=== PATIENT | female | born 1930 | race American Indian/Alaskan Native ===

== ENCOUNTER 2018-05-22 09:42 | Outpatient (CLI) | payer OTHER ==
[~2018-05-22 09:42] MED LIST: ATACAND16 MG PO; CRESTOR20 MG PO; DAFLONEX-XL TA1 EACH PO; ISOSORBIDE DINI30 MG PO; NORVASC2.5 MG PO; PLAVIX75 MG PO; STIOLTO RESPIMAT4 GM IH; TOPROL XL25 MG PO
== END 2018-05-22 10:00 | disposition home or self-care (01) ==
LOC: NUCLEAR 09:42
DX: I25.10 Atherosclerotic heart disease of native coronary artery without angina pectoris (principal); I73.9 Peripheral vascular disease, unspecified; I34.0 Nonrheumatic mitral (valve) insufficiency; I50.32 Chronic diastolic (congestive) heart failure; I35.0 Nonrheumatic aortic (valve) stenosis

== ENCOUNTER 2018-10-15 14:32 | Emergency (ER) | payer OTHER ==
[~2018-10-15] VITALS: Ht 162.6 cm; Wt 56.7 kg
[2018-10-15] MEDS ORDERED: DAFLONEX-XL TA1 EACH (15:10)
== END 2018-10-15 20:13 | disposition home or self-care (01) ==
LOC: ER 14:32
DX: K52.9 Noninfective gastroenteritis and colitis, unspecified (principal); R42 Dizziness and giddiness